=== PATIENT | male | born 1940 | race Caucasian/White ===

== ENCOUNTER 2020-12-25 06:34 | Outpatient (CLI) | payer MEDICARE | END 2020-12-25 06:35 | disposition critical access hospital (66) | LOC: EMS 06:34 | DX: R50.9 Fever, unspecified (principal); R04.2 Hemoptysis; Z86.16 Personal history of COVID-19; Z85.118 Personal history of other malignant neoplasm of bronchus and lung | CPT/HCPCS: A0425; A0429 ==

== ENCOUNTER 2020-12-25 07:04 | Inpatient (IN) | payer MEDICARE ==
[2020-12-25] MEDS ORDERED: ACETAMINOPHEN 325 MG TABLET PO STA (07:19)
[2020-12-25] MEDS ORDERED: AZITHROMYCIN INJ 500 MG in SODIUM CHLORIDE 0.9% 250 ML IV STA (07:29)
[2020-12-25] MEDS ORDERED: SODIUM CHLORIDE 0.9% IV STA (07:29)
[2020-12-25] MEDS ORDERED: cefTRIAXone 1 GM in SODIUM CHLORIDE 0.9% MINIBAG 100 ML IV STA (07:29)
--- NOTE | 2020-12-25 07:30 | ED Physician Documentation ---
PD HPI URI - Stated complaint Stated Complaint: FEVER - Chief complaint Chief Complaint: Resp - History obtained from History obtained from: Patient, EMS - History of Present Illness Timing - onset: Yesterday Timing duration: Days (2) Timing details: Gradual onset, Still present Associated symptoms: Fever, Chills, Productive cough, Hemoptysis, Dyspnea Contributing factors: Unimmunized, Other (chronic cough) Improves by: Rest Worsened by: Activity Similar symptoms before: Diagnosis (pneumonia) Recently seen: Admitted (in October to [facility]) - Additional information Additional information: 80-year-old male his dog sitting for his daughter has developed exertional dyspnea and cough and overnight he has developed a fever and chills. He was unable to get up out of bed this morning stumbling around and his called 911. He has been admitted into [facility] for a respiratory illness in October of this year. He is uncertain whether he had Covid or not. He is not immunized. Review of Systems Constitutional: reports: Fever, Chills, Myalgias, Fatigue, Sweats Eyes: denies: Decreased vision Ears: denies: Ear pain Nose: denies: Rhinorrhea / runny nose, Congestion Throat: denies: Sore throat Cardiac: denies: Chest pain / pressure, Palpitations, Pedal edema, Calf pain Respiratory: reports: Dyspnea, Cough, Hemoptysis GI: reports: Vomiting (after a coughing paroxysm today). denies: Abdominal Pain, Nausea, Constipation, Diarrhea : denies: Dysuria, Frequency Skin: denies: Rash Musculoskeletal: denies: Neck pain, Back pain, Extremity pain Neurologic: denies: Generalized weakness, Focal weakness, Numbness PD PAST MEDICAL HISTORY - Present Medications Home Medications: Ambulatory Orders Medication Instructions Recorded Confirmed Amlodipine Besylate [Norvasc] 10 mg PO DAILY 12/25/20 12/25/20 Divalproex Sodium [Depakote ER] 500 mg PO DAILY 12/25/20 12/25/20 Losartan [Cozaar] 50 mg PO DAILY 12/25/20 12/25/20 - Allergies Allergies/Adverse Reactions: Allergies Allergy/AdvReac Type Severity Reaction Status Date / Time morphine Allergy Hallucinati Verified 12/25/20 07:14 ons PD ED PE NORMAL - Vitals Vital signs reviewed: Yes (Febrile tachycardic and hypertensive) - General General: No acute distress, Well developed/nourished, Other (delay in execution of motor commands is present) - HEENT HEENT: Atraumatic, PERRL, EOMI - Neck Neck: Supple, no meningeal sign, No bony TTP - Cardiac Cardiac: No murmur, Other (Tachycardic to 100) - Respiratory Respiratory: No respiratory distress, Other (Rhonchi in the left base is reproducible) - Abdomen Abdomen: Soft, Non tender, Other (Well-healed midline scar) - Back Back: No CVA TTP, No spinal TTP - Derm Derm: Normal color, Warm and dry, No rash - Extremities Extremities: No deformity, No edema - Neuro Neuro: Alert and oriented X 3, research/program director 2-12 intact, No motor deficit, No sensory deficit, Normal speech Eye Opening: Spontaneous Motor: Obeys Commands Verbal: Oriented GCS Score: 15 - Psych Psych: Normal mood, Normal affect Results - Vitals Vitals: Vital Signs - 24 hr 12/25/20 12/25/20 12/25/20 07:14 07:48 08:08 Temperature 40.1 C H 38.4 C H Heart Rate 103 H 93 94 Respiratory 19 29 H 30 H Rate Blood Pressure 162/71 H 138/93 H 138/93 H O2 Saturation 96 95 94 12/25/20 08:30 Temperature Heart Rate 92 Respiratory 28 H Rate Blood Pressure 142/62 H O2 Saturation 93 Oxygen O2 Source Room air - Labs Labs: Laboratory Tests 12/25/20 12/25/20 12/25/20 07:37 07:38 07:50 WBC 8.2 RBC 5.06 Hgb 14.6 Hct 45.3 MCV 89.5 MCH 28.9 MCHC 32.2 RDW 14.3 Plt Count 164 MPV 10.8 Neut # (Auto) 7.3 H Lymph # (Auto) 0.4 L [place] # (Auto) 0.5 Eos # (Auto) 0.0 Baso # (Auto) 0.0 Absolute Nucleated RBC 0.00 Nucleated RBC % 0.0 Sodium Potassium Chloride Carbon Dioxide Anion Gap BUN Creatinine Estimated GFR (MDRD) Glucose Lactic Acid Calcium Total Bilirubin AST ALT Alkaline Phosphatase Total Protein Albumin Globulin Albumin/Globulin Ratio Urine Color YELLOW Urine Clarity CLEAR Urine pH 5.5 Ur Specific [place] 1.025 Urine Protein NEGATIVE Urine Glucose (UA) NEGATIVE Urine Ketones NEGATIVE Urine Occult Blood MODERATE H Urine Nitrite NEGATIVE Urine Bilirubin NEGATIVE Urine Urobilinogen 0.2 (NORMAL) Ur Leukocyte Esterase NEGATIVE Urine RBC 0-5 Urine WBC 0-3 Ur Squamous Epith Cells RARE Squamous Urine Bacteria None Seen Urine Culture Comments NOT INDICATED Nasal Adenovirus (PCR) NOT DETECTED Nasal B. parapertussis DNA (PCR) NOT DETECTED Nasal Coronavir 229E PCR NOT DETECTED Nasal Coronavir HKU1 PCR NOT DETECTED Nasal Coronavir NL63 PCR NOT DETECTED Nasal Coronavir OC43 PCR NOT DETECTED Nasal Enterovir/Rhinovir PCR NOT DETECTED Nasal Influenza B PCR NOT DETECTED Nasal Influenza A PCR NOT DETECTED Nasal Parainfluen 1 PCR NOT DETECTED Nasal Parainfluen 2 PCR NOT DETECTED Nasal Parainfluen 3 PCR NOT DETECTED Nasal Parainfluen 4 PCR NOT DETECTED Nasal RSV (PCR) NOT DETECTED Nasal B.pertussis DNA PCR NOT DETECTED Nasal C.pneumoniae (PCR) NOT DETECTED Gerry Human Metapneumo PCR NOT DETECTED Nasal M.pneumoniae (PCR) NOT DETECTED Nasal SARS-CoV-2 (PCR) NOT DETECTED 12/25/20 12/25/20 07:50 07:50 WBC RBC Hgb Hct MCV MCH MCHC RDW Plt Count MPV Neut # (Auto) Lymph # (Auto) [place] # (Auto) Eos # (Auto) Baso # (Auto) Absolute Nucleated RBC Nucleated RBC % Sodium 139 Potassium 3.7 Chloride 105 Carbon Dioxide 24 Anion Gap 10.0 BUN 28 H Creatinine 1.5 H Estimated GFR (MDRD) 45 L Glucose 106 H Lactic Acid 1.5 Calcium 9.2 Total Bilirubin 1.1 H AST 24 ALT 14 Alkaline Phosphatase 43 Total Protein 7.2 Albumin 3.7 Globulin 3.5 Albumin/Globulin Ratio 1.1 Urine Color Urine Clarity Urine pH Ur Specific [place] Urine Protein Urine Glucose (UA) Urine Ketones Urine Occult Blood Urine Nitrite Urine Bilirubin Urine Urobilinogen Ur Leukocyte Esterase Urine RBC Urine WBC Ur Squamous Epith Cells Urine Bacteria Urine Culture Comments Nasal Adenovirus (PCR) Nasal B. parapertussis DNA (PCR) Nasal Coronavir 229E PCR Nasal Coronavir HKU1 PCR Nasal Coronavir NL63 PCR Nasal Coronavir OC43 PCR Nasal Enterovir/Rhinovir PCR Nasal Influenza B PCR Nasal Influenza A PCR Nasal Parainfluen 1 PCR Nasal Parainfluen 2 PCR Nasal Parainfluen 3 PCR Nasal Parainfluen 4 PCR Nasal RSV (PCR) Nasal B.pertussis DNA PCR Nasal C.pneumoniae (PCR) Gerry Human Metapneumo PCR Nasal M.pneumoniae (PCR) Nasal SARS-CoV-2 (PCR) - Rads (name of study) chest Radiology: Prelim report reviewed (Impression: 1. Left hemithorax volume loss with extensive alveolar opacities and probable small L effusion. Chronicity is uncertain and changes may reflect chronic interstitial lung disease, neoplasm, or potentially acute infection. 2. 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. He has now developed fever and hemoptysis has rhonchi on exam corresponding infiltrate on chest x-ray. Today his COVID-19 is negative he presents to the emergency department febrile tachycardic and with a wide pulse pressure. He is started on sepsis protocol administered a azithromycin and Ro cephin intravenously as well as fluid resuscitation.He is administered Tylenol for fever and has improvement. Departure - Departure Disposition: [facility] DC/Xfer Clinical Impression: Pneumonia Qualifiers: Pneumonia type: due to unspecified organism Laterality: bilateral Lung location: lower lobe of lung Qualified Code(s): J18.9 - Pneumonia, unspecified organism Condition: Stable
[2020-12-25 08:09] LABS: BILIRUBIN,URINE NEGATIVE (NEGATIVE); GLUCOSE, URINE (UA) NEGATIVE (NEGATIVE); KETONES,URINE (UA) NEGATIVE (NEGATIVE); LEUKOCYTE ESTERASE, URINE NEGATIVE (NEGATIVE); NITRITE,URINE NEGATIVE (NEGATIVE); OCCULT BLOOD,URINE MODERATE (NEGATIVE); PH,URINE 5.5 PH (5.0-7.5); PROTEIN,URINE NEGATIVE (NEGATIVE); UROBILINOGEN,URINE 0.2 (NORMAL) E.U./dL (NORMAL)
[2020-12-25 08:11] LABS: CLARITY,URINE CLEAR (CLEAR)
[2020-12-25 08:12] LABS: BASOPHILS % (AUTO) 0.2 %; EOSINOPHILS % (AUTO) 0.1 %; HCT - HEMATOCRIT 45.3 % (42.0-52.0); HGB - HEMOGLOBIN 14.6 g/dL (14.0-18.0); LYMPHOCYTES # (AUTO) 0.4 10^3/uL (1.5-3.5); MEAN CORPUSCULAR HEMOGLOBIN 28.9 pg (27.0-31.0); MEAN CORPUSCULAR HGB CONC 32.2 g/dL (32.0-36.0); MEAN CORPUSCULAR VOLUME 89.5 fL (80.0-94.0); MEAN PLATELET VOLUME 10.8 fL (7.4-11.4); MONOCYTES # (AUTO) 0.5 10^3/uL (0.0-1.0); MONOCYTES % (AUTO) 5.6 %; NEUTROPHILS # (AUTO) 7.3 10^3/uL (1.5-6.6); NEUTROPHILS % (AUTO) 88.9 %; PLT - PLATELET COUNT 164 10^3/uL (130-450); RED BLOOD COUNT 5.06 10^6/uL (4.70-6.10); RED CELL DISTRIBUTION WIDTH 14.3 % (12.0-15.0); WHITE BLOOD COUNT 8.2 x10^3/uL (4.8-10.8)
[2020-12-25 08:15] LABS: BACTERIA,URINE None Seen /HPF (None Seen); RBC,URINE 0-5 /HPF (0-5); SQUAMOUS EPITHELIAL CELL,UR RARE Squamous (<= Few); WBC,URINE 0-3 /HPF (0-3)
--- NOTE | 2020-12-25 08:16 | XRAY Report ---
PROCEDURE: Chest 1 View X-Ray INDICATIONS: chest pain TECHNIQUE: One view of the chest was acquired. COMPARISON: None FINDINGS: Surgical changes and devices: None. Lungs and pleura: Fairly extensive patchy alveolar opacity throughout the mid to lower left lung with consolidative changes in the lingula and blunting of the costophrenic sulcus. There is left lateral pleural thickening which may be pleural fluid. There is overall left hemithorax volume loss. Small al veolar consolidation right lateral lower lung without significant effusion. No pneumothorax. Mediastinum: Mediastinal contours appear normal. Heart size is normal. Heavy aortic arch calcifica tion. Bones and chest wall: No suspicious bony lesions. Overlying soft tissues appear unremarkable. IMPRESSION: 1. Left hemithorax volume loss with extensive alveolar opacities and probable small left effusion. Ch ronicity is uncertain and changes may reflect chronic interstitial lung disease, neoplasm, or potenti ally acute infection. 2. Small right lateral alveolar opacity, potentially acute infection or aspiration. Reviewed by: Mariella Alejandre MD on 12/25/2020 8:15 AM PDT Approved by: Mariella Alejandre MD on 12/25/2020 8:15 AM PDT Station ID: [id number]
[2020-12-25 08:24] LABS: ALBUMIN 3.7 g/dL (3.2-5.5); ALBUMIN/GLOBULIN RATIO 1.1 (1.0-2.2); BILIRUBIN,TOTAL 1.1 mg/dL (0.2-1.0); CALCIUM 9.2 mg/dL (8.5-10.3); CREATININE 1.5 mg/dL (0.6-1.2); POTASSIUM 3.7 mmol/L (3.5-5.0); TOTAL PROTEIN 7.2 g/dL (6.7-8.2)
[2020-12-25 09:02] LABS: B. PARAPERTUSSIS- RESP PCR PAN NOT DETECTED; B. PERTUSSIS- RESP PCR PANEL NOT DETECTED; C. PNEUMONIAE- RESP PCR PANEL NOT DETECTED; CORONAVIRUS 229E-RESP PCR NOT DETECTED; CORONAVIRUS HKU1-RESP PCR NOT DETECTED; CORONAVIRUS NL63-RESP PCR NOT DETECTED; CORONAVIRUS OC43-RESP PCR NOT DETECTED; HUMAN METAPNEUMOVIRUS NOT DETECTED; INFLUENZA A- RESP PCR PANEL NOT DETECTED; INFLUENZA B - RESP PCR PANEL NOT DETECTED; M. PNEUMONIAE- RESP PCR PANEL NOT DETECTED; PARAINFLUENZA VIRUS 1 NOT DETECTED; PARAINFLUENZA VIRUS 2 NOT DETECTED; PARAINFLUENZA VIRUS 3 NOT DETECTED; PARAINFLUENZA VIRUS 4 NOT DETECTED; RHINOVIRUS/ENTEROVIRUS NOT DETECTED; RSV- RESP PCR PANEL NOT DETECTED; SARS-CoV-2 -RESP PCR PANEL NOT DETECTED
[2020-12-25] MEDS ORDERED: IOVERSOL 320 100 ML VIAL IVP ONE ×2 (09:49→13:08)
--- NOTE | 2020-12-25 11:57 | CT Report ---
PROCEDURE: CHEST W INDICATIONS: LLL infiltrate hx/o cancer L lobectomy CONTRAST: IV CONTRAST: Optiray 320 ml: 100 PO CONTRAST: *NO PO CONTRAST TECHNIQUE: After the administration of intravenous contrast, 5 mm thick sections acquired from the pulmonary api ray to the posterior costophrenic angles. 7 mm thick coronal MIP reformats were acquired. For radia tion dose reduction, the following was used: automated exposure control, adjustment of mA and/or kV according to patient size. COMPARISON: Chest x-ray 12/25/2020 FINDINGS: Image quality: Excellent. Lungs and pleura: Chronic interstitial changes are present. There are predominantly left-sided patchy and confluent pulmonary opacities, some appearing groundglass in appearance. Minimal left effusion i s present. Mediastinum: Heart size is normal. No pericardial effusion. Multiple mediastinal lymph nodes are pr esent, borderline enlarged by short axis size criteria. Thoracic aorta and central pulmonary arteries are normal in size. Esophagus is normal in caliber. No hiatal hernia. Bones and chest wall: No suspicious bony lesions. No vertebral body compression fractures. No axil chelle or supraclavicular adenopathy by size criteria. The thyroid is normal in size and there are no incidental findings.. Abdomen: Visualized upper abdominal solid organs appear normal. Upper abdominal bowel loops are nor mal in caliber. IMPRESSION: 1. Predominantly left hemithorax interstitial pulmonary opacities and minimal effusion as described a gloria. Overall appearance is suggestive of infection or inflammation. However, given history of previo us neoplasm, short interval imaging follow-up after appropriate therapy is recommended to document re solution and exclude presence of underlying mass of potential neoplastic etiology. 2. Numerous borderline enlarged mediastinal lymph nodes, possibly reactive given potential infectious /inflammatory nature of the lungs as above. Reviewed by: Tatum Barr MD on 12/25/2020 11:56 AM PDT Approved by: Tatum Barr MD on 12/25/2020 11:56 AM PDT Station ID: [id number]
[2020-12-25] MEDS ORDERED: ACETAMINOPHEN 325 MG TABLET PO PRN (12:14)
[2020-12-25] MEDS ORDERED: ONDANSETRON 4 MG/2 ML VIAL IVP PRN (12:14)
[2020-12-25] MEDS ORDERED: ONDANSETRON ODT 4 MG TABLET TL PRN (12:14)
[2020-12-25] MEDS ORDERED: SODIUM CHLORIDE FLUSH 0.9% 10 ML SYRINGE IVP PRN (12:14)
[2020-12-25] MEDS ORDERED: ALBUTEROL NEB 2.5 MG/3 ML INH PRN (12:18)
--- NOTE | 2020-12-25 13:19 | PHARMACY PROGRESS NOTE ---
- Best Possible Medication History Admit Date and Time: 12/25/20 1214 Processed by: Nursing Medication History completed: Yes Patient Interview: Completed (MED REC COMPLETED BY NURSING) As the person ultimately responsible for medication therapy, providers are able to order a medication from an existing home medication list in [facility] via the "Reconcile Routine" prior to Confirmation of that medication by direct support professional home health. Such practice is discouraged except when the physician, in their clinical judgment, deems that a medical need exists for a medication without regard to previous use.
[2020-12-25] MEDS: LACTATED RINGERS 1,000 ML IV SCH ×2 (13:42→23:51)
--- NOTE | 2020-12-25 14:44 | HISTORY & PHYSICAL EXAMINATION ---
Chief Complaint - Chief Complaint Chief Complaint: feve, chill History of Present Illness - Admitted From Admitted From:: medical floor - History Obtained From Records Reviewed: [facility] History obtained from: pt Exam Limitations: no - History of Present Illness HPI Comment/Other: this is a pleasant 80-year-old male with A past medical history significant of lung cancer, hypertension Who present to ER complain warm and chill in home. 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 He denies dyspnea, chest pain. He reported he was found to have lung cancer 3 years ago, then he had left loberectomy done after. He reported he declined to have chemotherapy although his oncology hoped him to do. CT of the chest review predominately left hemothorax interstitial pulmonary opacities and minimal effusion, overly appearance is suggestive of infection or inflammation, Given history of previous neoplasm, Follow-up after appropriate therapy is recommended to document resolution and excluded patient of underlying mass of potential neoplastic etiology. In ER, patient is febrile in the temperature 40.1 With tachycardia and tachypnea. Given above medical condition, medical team was consulted for admitted patient. Discussed the care goal with the patient, patient clearly stated he is DNR/DNI. History - Family & Social History Family History: Mother: , Father: Family History Comment/Other: Patient reported his father at age 92 from heart attack. His mother at age 87 from complication of diabetic. Social History Notes: Patient reported he quit cigarette smoking at age 26, he denies alcohol or drug problem. He is living to [facility], he had 5 children - POLST POLST Status: DNR Meds/Allgy - Home Medications Home Medications: Ambulatory Orders Medication Instructions Recorded Confirmed Amlodipine Besylate [Norvasc] 10 mg PO DAILY 12/25/20 12/25/20 Divalproex Sodium [Depakote ER] 500 mg PO DAILY 12/25/20 12/25/20 Losartan [Cozaar] 50 mg PO DAILY 12/25/20 12/25/20 - Allergies Allergies/Adverse Reactions: Allergies Allergy/AdvReac Type Severity Reaction Status Date / Time morphine Allergy Hallucinati Verified 12/25/20 07:14 ons Review of Systems - Constitutional Constitutional: reports: Fever, Chills. denies: Diaphoresis, Night sweats - Eyes Eyes: denies: Pain, Field loss, Vision loss - Ears, Nose & Throat Ears, Nose & Throat: denies: Ear pain, Nosebleeds, Bleeding gums - Cardiovascular Cariovascular: denies: Chest pain, Syncope, Exertional dyspnea - Respiratory Respiratory: reports: Cough, Sputum production, SOB with exertion. denies: Wheezing, Hemoptysis - Gastrointestinal Gastrointestinal: denies: Abdominal pain, Diarrhea, Nausea, Vomiting - Genitourinary Genitourinary: denies: Dysuria - Musculoskeletal Musculoskeletal: denies: Muscle pain, Limited range of motion - Integumentary Integumentary: denies: Rash - Neurological Neurological: denies: General weakness, Focal weakness, Dizziness, Abnormal gait, Seizures, Slurred speech - Psychiatric Psychiatric: denies: Depression - Endocrine Endocrine: denies: Polyuria - Hematologic/Lymphatic Hematologic/Lymphatic: denies: Lymphadenopathy Prior Level of Functionality: Patient is independent at home Exam - Vital Signs Vital Signs: Vital Signs x48h Temp Pulse Pulse Resp BP BP Pulse Ox 12/25/20 12:53 73 18 145/50 H 96 12/25/20 12:30 72 24 147/85 H 93 12/25/20 12:00 37.0 C 75 23 135/58 H 96 12/25/20 11:00 74 22 142/57 H 93 12/25/20 10:30 78 24 146/72 H 95 12/25/20 10:00 80 18 138/61 H 94 12/25/20 09:30 37.7 C 81 27 H 149/68 H 93 12/25/20 09:00 38.1 C H 82 29 H 139/80 H 94 12/25/20 08:30 92 28 H 142/62 H 93 12/25/20 08:08 38.4 C H 94 30 H 138/93 H 94 12/25/20 07:48 93 29 H 138/93 H 95 12/25/20 07:14 40.1 C H 103 H 19 162/71 H 96 - Physical Exam General Appearance: positive: No acute distress, Alert. negative: Lethargic Eyes Bilateral: positive: Normal inspection, PERRL, No lid inflammation ENT: positive: ENT inspection nml, No signs of dehydration. negative: Purulent nasal drainage Neck: positive: Nml inspection, Trachea midline. negative: Thyromegaly, Tracheal deviation Respiratory: positive: Chest non-tender, No respiratory distress, Rales Cardiovascular: positive: Regular rate & rhythm, No murmur. negative: Tachycardia, Bradycardia, Systolic murmur, Diastolic murmur Peripheral Pulses: positive: 2+ Abdomen: positive: Non-tender, Nml bowel sounds, No distention. negative: Tenderness Back: positive: Nml inspection Skin: positive: Color nml, Warm, Dry. negative: Cyanosis Extremities: positive: Non-tender, Full ROM, Nml appearance. negative: Calf tenderness Neurologic/Psychiatric: positive: Oriented x3, Motor nml, Sensation nml, Mood/affect nml. negative: Weakness, Sensory loss, Facial droop, Slurred/abnml speech, Depressed mood/affect Sepsis Event Note (H) - Evaluation Current Stage of Sepsis: Sepsis Possible source of Sepsis: positive: Pulmonary - Sepsis Criteria Sepsis Criteria: Recorded Temperature greater than 38.3C or Less than 36C, Recorded Heart Rate greater than 90 bpm, Recorded Respiratory Rate greater than 20 Conclusion/Plan - Problem List (1) Sepsis Conclusion/Plan: Patient had high fever, patient present tachypnea, tachycardia. Chest x-ray and CT is suggestive to have pneumonia, Mainly located at left lung. ER already started treated patient with azithromycin, Rocephin. We will continue to these antibiotics, Blood culture is draw and pending. (2) Pneumonia Conclusion/Plan: Chest x-ray and CT suggestive to patient has pneumonia. Patient does not show acute respiratory distress. However patient had fever, tachypnea, tachycardia in the admission. We will continue treated with antibiotics, blood cultures is pending. Qualifiers: Pneumonia type: due to unspecified organism Laterality: bilateral Lung location: lower lobe of lung Qualified Code(s): J18.9 - Pneumonia, unspecified organism (3) Hx of cancer of lung Conclusion/Plan: Patient history of left loberectomy and left lung cancer Blood no chemotherapy after surgery. CT of the chest show numerous borderline enlarged mediastinal lymph nodes Which could possible reactive culture pneumonia. However patient also had hx of lung cancer in the left side of the lung. Patient may have repeat CT after pneumonia is appropriate treated. (4) HTN (hypertension) Conclusion/Plan: Patient's hypertension is stable now, we will resume patient blood pressure medicine. - Lab Results Fish Bones: 12/25/20 07:50 12/25/20 07:50 Core Measures - Anticipated LOS I expect patient to be DC'd or transferred within 96 hours.: Yes - DVT/VTE - Prophylaxis VTE/DVT Device ordered at admit?: Yes VTE/DVT Prophylaxis med ordered at admit?: Yes
[2020-12-25 15:24] LABS: VALPROIC ACID (DEPAKOTE) 23.8 ug/mL
[2020-12-25] MEDS: SACCHAROMYCES BOULARDII 250 MG CAPSULE PO SCH (17:08)
[2020-12-25] MEDS: SODIUM CHLORIDE FLUSH 0.9% 10 ML SYRINGE IVP SCH ×2 (17:09→23:51)
[2020-12-25] MEDS: DIVALPROEX ER 250 MG TABLET PO SCH (17:09)
[2020-12-25] MEDS: guaiFENesin 600 MG TABLET PO SCH (21:32)
[2020-12-26 05:25] LABS: BASOPHILS % (AUTO) 0.3 %; EOSINOPHILS % (AUTO) 0.3 %; HCT - HEMATOCRIT 36.6 % (42.0-52.0); HGB - HEMOGLOBIN 11.8 g/dL (14.0-18.0); LYMPHOCYTES # (AUTO) 0.9 10^3/uL (1.5-3.5); LYMPHOCYTES % (AUTO) 8.2 %; MEAN CORPUSCULAR HGB CONC 32.2 g/dL (32.0-36.0); MEAN CORPUSCULAR VOLUME 89.9 fL (80.0-94.0); MEAN PLATELET VOLUME 10.7 fL (7.4-11.4); MONOCYTES # (AUTO) 1.1 10^3/uL (0.0-1.0); MONOCYTES % (AUTO) 9.3 %; NEUTROPHILS # (AUTO) 9.2 10^3/uL (1.5-6.6); NEUTROPHILS % (AUTO) 81.4 %; PLT - PLATELET COUNT 131 10^3/uL (130-450); RED BLOOD COUNT 4.07 10^6/uL (4.70-6.10); RED CELL DISTRIBUTION WIDTH 14.6 % (12.0-15.0); WHITE BLOOD COUNT 11.3 x10^3/uL (4.8-10.8)
[2020-12-26 05:55] LABS: CALCIUM 8.6 mg/dL (8.5-10.3); CREATININE 1.3 mg/dL (0.6-1.2); CRP - C-REACTIVE PROTEIN 19.5 mg/dL (0-1.0); POTASSIUM 3.7 mmol/L (3.5-5.0)
[2020-12-26] MEDS: guaiFENesin 600 MG TABLET PO SCH ×2 (08:15→21:57)
[2020-12-26] MEDS: SACCHAROMYCES BOULARDII 250 MG CAPSULE PO SCH ×2 (08:15→17:11)
[2020-12-26] MEDS: cefTRIAXone 2 GM in SODIUM CHLORIDE 0.9% MINIBAG 100 ML IV SCH (08:15)
[2020-12-26] MEDS: DIVALPROEX ER 250 MG TABLET PO SCH (08:15)
[2020-12-26] MEDS: ENOXAPARIN 40 MG/0.4 ML SYRINGE SUBQ SCH (08:16)
[2020-12-26] MEDS: SODIUM CHLORIDE FLUSH 0.9% 10 ML SYRINGE IVP SCH ×3 (08:16→23:30)
[2020-12-26] MEDS: AZITHROMYCIN INJ 500 MG in SODIUM CHLORIDE 0.9% 250 ML IV SCH (08:52)
--- NOTE | 2020-12-26 08:59 | PROVIDER PROGRESS NOTE ---
Subjective - Prog Note Date Prog Note Date: 12/26/20 - Subjective Subjective: He reports feeling much better today compared to yesterday. Still has a cough which she states is unchanged compared to his baseline. He has not felt short of breath when ambulating. Denies any chest pain. Current Medications - Current Medications Current Medications: Active Medications Acetaminophen (Acetaminophen 325 Mg Tablet) 650 mg PO Q4HR PRN PRN Reason: Pain 1 to 4 Albuterol (Albuterol Neb 2.5 Mg/3 Ml) 2.5 mg INH Q4HR PRN PRN Reason: Wheezing Divalproex Sodium (Divalproex Er 250 Mg Tablet) 500 mg PO DAILY [facility] Last Admin: 12/26/20 08:15 Dose: 500 mg Documented by: Enoxaparin Sodium (Enoxaparin 40 Mg/0.4 Ml Syringe) 40 mg SUBQ DAILY [facility] Last Admin: 12/26/20 08:16 Dose: Not Given Documented by: Guaifenesin (Guaifenesin 600 Mg Tablet) 600 mg PO BID [facility] Last Admin: 12/26/20 08:15 Dose: 600 mg Documented by: Azithromycin 500 mg/ Sodium (Chloride) 250 mls @ 250 mls/hr IV DAILY [facility] Stop: 12/27/20 09:59 Last Admin: 12/26/20 08:52 Dose: 250 mls/hr Documented by: Ceftriaxone Sodium 2 gm/ (Sodium Chloride) 100 mls @ 200 mls/hr IV DAILY [facility] Stop: 12/29/20 09:29 Last Admin: 12/26/20 08:15 Dose: 200 mls/hr Documented by: Ondansetron HCl (Ondansetron Odt 4 Mg Tablet) 4 mg TL Q6HR PRN PRN Reason: Nausea / Vomiting Ondansetron HCl (Ondansetron 4 Mg/2 Ml Vial) 4 mg IVP Q6HR PRN PRN Reason: Nausea / Vomiting Saccharomyces Boulardii (Saccharomyces Boulardii 250 Mg Capsule) 250 mg PO BIDWM [facility] Last Admin: 12/26/20 08:15 Dose: 250 mg Documented by: Sodium Chloride (Sodium Chloride Flush 0.9% 10 Ml Syringe) 10 ml IVP PRN PRN PRN Reason: NEEDED PER PROVIDER ORDERS Last Admin: 12/25/20 13:43 Dose: 10 ml Documented by: Sodium Chloride (Sodium Chloride Flush 0.9% 10 Ml Syringe) 10 ml IVP 0100,0900,1700 [facility] Last Admin: 12/26/20 08:16 Dose: 10 ml Documented by: Amlodipine Besylate [Norvasc] 10 mg PO DAILY 12/25/20 Divalproex Sodium [Depakote ER] 500 mg PO DAILY 12/25/20 Losartan [Cozaar] 50 mg PO DAILY 12/25/20 Objective - Vital Signs/Intake & Output Reviewed Vital Signs: Yes Vital Signs: Vital Signs x48h Temp Pulse Pulse Resp BP Pulse Ox 12/26/20 08:00 36.2 C L 68 18 130/54 L 96 12/26/20 05:05 36.7 C 80 20 94 12/26/20 02:52 36.7 C 80 20 140/52 H 94 Intake & Output: Intake & Output 12/23/20 12/24/20 12/25/20 12/26/20 23:59 23:59 23:59 23:59 Intake Total 6669 240 Balance 6669 240 - Objective General Appearance: positive: No acute distress, Alert Eyes Bilateral: positive: Normal inspection, Conjunctivae nml ENT: positive: ENT inspection nml Neck: positive: Nml inspection Respiratory: positive: No respiratory distress, Rhonchi (Faint rhonchi in the left lung field.), Other (Diminished breath sounds in left base.). negative: Wheezes Cardiovascular: positive: Regular rate & rhythm, No murmur. negative: Tachycardia Abdomen: positive: Non-tender, No distention. negative: Tenderness Skin: positive: Warm, Dry Extremities: positive: Pedal edema (Trace pitting edema in bilateral lower extremities) Neurologic/Psychiatric: positive: Motor nml. negative: Disoriented to person, Disoriented to place - Lab Results Fish Bones: 12/26/20 04:39 12/26/20 04:39 Other Labs: Lab Results x24hrs 12/26/20 12/26/20 12/25/20 Range/Units 04:39 04:39 15:00 WBC 11.3 H (4.8-10.8) x10^3/uL RBC 4.07 L (4.70-6.10) 10^6/uL Hgb 11.8 L (14.0-18.0) g/dL Hct 36.6 L (42.0-52.0) % MCV 89.9 (80.0-94.0) fL MCH 29.0 (27.0-31.0) pg MCHC 32.2 (32.0-36.0) g/dL RDW 14.6 (12.0-15.0) % Plt Count 131 (130-450) 10^3/uL MPV 10.7 (7.4-11.4) fL Neut # (Auto) 9.2 H (1.5-6.6) 10^3/uL Lymph # (Auto) 0.9 L (1.5-3.5) 10^3/uL [place] # (Auto) 1.1 H (0.0-1.0) 10^3/uL Eos # (Auto) 0.0 (0.0-0.7) 10^3/uL Baso # (Auto) 0.0 (0.0-0.1) 10^3/uL Absolute Nucleated RBC 0.00 x10^3/uL Nucleated RBC % 0.0 /100WBC Sodium 137 (135-145) mmol/L Potassium 3.7 (3.5-5.0) mmol/L Chloride 103 (101-111) mmol/L Carbon Dioxide 23 (21-32) mmol/L Anion Gap 11.0 (6-13) BUN 23 H (6-20) mg/dL Creatinine 1.3 H (0.6-1.2) mg/dL Estimated GFR (MDRD) 53 L (>89) Glucose 102 H (70-100) mg/dL Calcium 8.6 (8.5-10.3) mg/dL C-Reactive Protein 19.5 H 7.9 H (0-1.0) mg/dL Nasal Adenovirus (PCR) Nasal B. parapertussis DNA (PCR) Nasal Coronavir 229E PCR Nasal Coronavir HKU1 PCR Nasal Coronavir NL63 PCR Nasal Coronavir OC43 PCR Nasal Enterovir/Rhinovir PCR Nasal Influenza B PCR Nasal Influenza A PCR Nasal Parainfluen 1 PCR Nasal Parainfluen 2 PCR Nasal Parainfluen 3 PCR Nasal Parainfluen 4 PCR Nasal RSV (PCR) Nasal B.pertussis DNA PCR Nasal C.pneumoniae (PCR) Gerry Human Metapneumo PCR Nasal M.pneumoniae (PCR) Nasal SARS-CoV-2 (PCR) Last Dose Date Last Dose Time Valproic Acid ug/mL 12/25/20 12/25/20 Range/Units 15:00 07:38 WBC (4.8-10.8) x10^3/uL RBC (4.70-6.10) 10^6/uL Hgb (14.0-18.0) g/dL Hct (42.0-52.0) % MCV (80.0-94.0) fL MCH (27.0-31.0) pg MCHC (32.0-36.0) g/dL RDW (12.0-15.0) % Plt Count (130-450) 10^3/uL MPV (7.4-11.4) fL Neut # (Auto) (1.5-6.6) 10^3/uL Lymph # (Auto) (1.5-3.5) 10^3/uL [place] # (Auto) (0.0-1.0) 10^3/uL Eos # (Auto) (0.0-0.7) 10^3/uL Baso # (Auto) (0.0-0.1) 10^3/uL Absolute Nucleated RBC x10^3/uL Nucleated RBC % /100WBC Sodium (135-145) mmol/L Potassium (3.5-5.0) mmol/L Chloride (101-111) mmol/L Carbon Dioxide (21-32) mmol/L Anion Gap (6-13) BUN (6-20) mg/dL Creatinine (0.6-1.2) mg/dL Estimated GFR (MDRD) (>89) Glucose (70-100) mg/dL Calcium (8.5-10.3) mg/dL C-Reactive Protein (0-1.0) mg/dL Nasal Adenovirus (PCR) NOT DETECTED Nasal B. parapertussis DNA (PCR) NOT DETECTED Nasal Coronavir 229E PCR NOT DETECTED Nasal Coronavir HKU1 PCR NOT DETECTED Nasal Coronavir NL63 PCR NOT DETECTED Nasal Coronavir OC43 PCR NOT DETECTED Nasal Enterovir/Rhinovir PCR NOT DETECTED Nasal Influenza B PCR NOT DETECTED Nasal Influenza A PCR NOT DETECTED Nasal Parainfluen 1 PCR NOT DETECTED Nasal Parainfluen 2 PCR NOT DETECTED Nasal Parainfluen 3 PCR NOT DETECTED Nasal Parainfluen 4 PCR NOT DETECTED Nasal RSV (PCR) NOT DETECTED Nasal B.pertussis DNA PCR NOT DETECTED Nasal C.pneumoniae (PCR) NOT DETECTED Gerry Human Metapneumo PCR NOT DETECTED Nasal M.pneumoniae (PCR) NOT DETECTED Nasal SARS-CoV-2 (PCR) NOT DETECTED Last Dose Date Not Reportable Last Dose Time Not Reportable Valproic Acid 23.8 ug/mL ABX Reporting Has patient been on IV antibiotics over the past 48 hours?: Yes Sepsis Event Note (H) - Evaluation Current Stage of Sepsis: Resolved Possible source of Sepsis: positive: Pulmonary - Sepsis Criteria Sepsis Criteria: Recorded Temperature greater than 38.3C or Less than 36C, Recorded Heart Rate greater than 90 bpm, Recorded Respiratory Rate greater than 20 Assessment/Plan - Problem List (1) Sepsis Impression: His sepsis has now resolved. Presented with a fever and tachycardia. This is secondary to the community-acquired pneumonia. He has been hemodynamically stable and his lactic acid was within normal limits. We will continue day 2 of IV antibiotics. Blood cultures are pending. (2) Community acquired pneumonia Impression: This is the cause of his sepsis. Clinically he has shown much improvement over the past 24 hours. He remains on room air and no longer feels dyspneic. His white count is slightly increased today as well as his CRP. We will keep him on ceftriaxone and azithromycin for community-acquired pneumonia with today being day 2. If he remains afebrile then we will look to discharge him tomorrow morning to oral antibiotics to complete 7 days of therapy. Continue to monitor respiratory status. Qualifiers: Laterality: left (3) HTN (hypertension) Impression: His blood pressure has been elevated in the 130s to 140 systolic. We will resume his home losartan. We will hold off on the amlodipine unless his blood pressure continues to increase further. (4) Hx of cancer of lung Impression: He has a history of lung cancer she is here with a left lower lobe lobectomy. He did not receive chemotherapy. CT does show mediastinal lymphadenopathy which could be reactive given the infection. Nonetheless, he will need repeat imaging on an outpatient basis after we treat his pneumonia.
[2020-12-27 08:11] LABS: BASOPHILS % (AUTO) 0.3 %; EOSINOPHILS # (AUTO) 0.1 10^3/uL (0.0-0.7); EOSINOPHILS % (AUTO) 1.4 %; HCT - HEMATOCRIT 37.5 % (42.0-52.0); HGB - HEMOGLOBIN 12.3 g/dL (14.0-18.0); LYMPHOCYTES # (AUTO) 0.8 10^3/uL (1.5-3.5); LYMPHOCYTES % (AUTO) 9.7 %; MEAN CORPUSCULAR HEMOGLOBIN 29.4 pg (27.0-31.0); MEAN CORPUSCULAR HGB CONC 32.8 g/dL (32.0-36.0); MEAN CORPUSCULAR VOLUME 89.7 fL (80.0-94.0); MEAN PLATELET VOLUME 10.8 fL (7.4-11.4); MONOCYTES # (AUTO) 0.7 10^3/uL (0.0-1.0); MONOCYTES % (AUTO) 9.2 %; NEUTROPHILS # (AUTO) 6.3 10^3/uL (1.5-6.6); NEUTROPHILS % (AUTO) 78.9 %; PLT - PLATELET COUNT 118 10^3/uL (130-450); RED BLOOD COUNT 4.18 10^6/uL (4.70-6.10); RED CELL DISTRIBUTION WIDTH 14.3 % (12.0-15.0); WHITE BLOOD COUNT 7.9 x10^3/uL (4.8-10.8)
[2020-12-27] MEDS: guaiFENesin 600 MG TABLET PO SCH (08:28)
[2020-12-27] MEDS: SACCHAROMYCES BOULARDII 250 MG CAPSULE PO SCH (08:29)
[2020-12-27] MEDS: DIVALPROEX ER 250 MG TABLET PO SCH (08:29)
[2020-12-27] MEDS: cefTRIAXone 2 GM in SODIUM CHLORIDE 0.9% MINIBAG 100 ML IV SCH (08:30)
[2020-12-27] MEDS: ENOXAPARIN 40 MG/0.4 ML SYRINGE SUBQ SCH (08:30)
[2020-12-27] MEDS: SODIUM CHLORIDE FLUSH 0.9% 10 ML SYRINGE IVP SCH (08:30)
[2020-12-27 08:51] LABS: CALCIUM 8.8 mg/dL (8.5-10.3); CREATININE 1.2 mg/dL (0.6-1.2); CRP - C-REACTIVE PROTEIN 23.2 mg/dL (0-1.0); POTASSIUM 3.5 mmol/L (3.5-5.0)
[2020-12-27] MEDS ORDERED: LOSARTAN 50 MG TABLET PO SCH (09:00)
[2020-12-27] MEDS: AZITHROMYCIN INJ 500 MG in SODIUM CHLORIDE 0.9% 250 ML IV SCH (09:35)
[2020-12-27 10:09] VITALS: BP 140/61
--- NOTE | 2020-12-27 10:34 | Discharge Plan ---
Discharge Plan Problem Reviewed?: Yes Disposition: Home, Self Care Condition: Stable Prescriptions: Amoxicillin 1,000 mg PO TID 5 Days #30 cap Diet: Regular Activity Restrictions: Activity as Tolerated Instruction Topics: Amoxicillin capsules or tablets, Vaccination Pneumococcal, Pneumonia Dc Health Concerns: You were admitted to the hospital because of pneumonia. You were treated with IV antibiotics with improvement in your symptoms. Fortunately you never required oxygen. Your white count is now within normal limits and you have been fever free for over 24 hours. There has been no evidence of bacteria growing in your blood. Plan of Treatment: Please take the antibiotic amoxicillin 3 times a day as prescribed. This will be for another 5 days. It is important to finish the 5 days even if you feel that you are improving and no longer need antibiotics. You can start taking this on December 28. When you follow-up with your primary care physician, you should have a CT scan at some point likely 1 to [address] just to ensure that there is no recurrence of your lung cancer. Care Goals: The goal is to treat the underlying pneumonia. Assessment: The patient and family expressed understanding of the treatment plan. Additional Instructions or Follow Up instructions: Please follow-up with your primary care provider in 1 week. You should discuss with them regarding the pneumonia vaccine. Please return to the emergency department if you develop any fevers, chills, difficulty breathing. No Smoking: If you smoke, Please STOP! Call for help. Follow-up with: Urbano Segovia MD [Primary Care Provider] -
--- NOTE | 2020-12-27 10:43 | DISCHARGE SUMMARY ---
Discharge Summary Admit Date: 12/25/20 Discharge Date: 12/27/20 Discharging Provider: Sharad Mijares Primary Care Provider: Urbano Segovia Code Status: Do Not Attempt Resuscitation Condition at Discharge: Stable Discharge Disposition: 01 Home, Self Care - DIAGNOSES Admission Diagnoses: Sepsis Pneumonia History of cancer of lung Hypertension Discharge Diagnoses with Status of Each Condition: Sepsis - resolved. Community-acquired pneumonia - improved. Hypertension - stable. History of cancer of lung - stable. - HPI History of Present Illness: H&P per ANTHONY Mendoza: This is a pleasant 80-year-old male with A past medical history significant of lung cancer, hypertension Who present to ER complain warm and chill in home. 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 He denies dyspnea, chest pain. He reported he was found to have lung cancer 3 years ago, then he had left loberectomy done after. He reported he declined to have chemotherapy although his oncology hoped him to do. CT of the chest review predominately left hemothorax interstitial pulmonary opacities and minimal effusion, overly appearance is suggestive of infection or inflammation, Given history of previous neoplasm, Follow-up after appropriate therapy is recommended to document resolution and excluded patient of underlying mass of potential neoplastic etiology. In ER, patient is febrile in the temperature 40.1 With tachycardia and tachypnea. Given above medical condition, medical team was consulted for admitted patient. Discussed the care goal with the patient, patient clearly stated he is DNR/DNI. - HOSPITAL COURSE Hospital Course: He was admitted to the floor for sepsis secondary to community-acquired pneumonia of the left lung. He was started on ceftriaxone and azithromycin IV. A CT scan of the lung was concerning for infection and there was evidence of reactive mediastinal lymph nodes. He was never hypoxic and never required supplemental oxygen. The following day he felt much improved but he still did have a low-grade fever of 38 C. His white count had also slightly increased and his CRP was also increasing. We kept him on the ceftriaxone and azithromycin given he was clinically improving. The following day his white count returned to normal although his CRP did still increase slightly. He felt much improved and wanted to go home which we felt was reasonable given he had been afebrile for about 24 hours now and his white count has normalized. He also had no dyspnea and was ambulating without difficulty. He was also able to take p.o. He ultimately received 1.5 g of azithromycin and 3 doses of IV ceftriaxone. I did discharge him on amoxicillin 1 g 3 times daily to finish 7 days of therapy for the community-acquired pneumonia. I did ask him to follow-up with his primary care provider in 1 week. I also asked him to return to the emergency department if he were to develop any fevers, chills or difficulty breathing. I also spoke with the patient's to inform her of the discharge plan. - ALLERGIES Allergies/Adverse Reactions: Allergies Allergy/AdvReac Type Severity Reaction Status Date / Time morphine Allergy Hallucinati Verified 12/25/20 07:14 ons - MEDICATIONS Home Medications: Ambulatory Orders Medication Instructions Recorded Confirmed Amlodipine Besylate [Norvasc] 10 mg PO DAILY 12/25/20 12/25/20 Divalproex Sodium [Depakote ER] 500 mg PO DAILY 12/25/20 12/25/20 Losartan [Cozaar] 50 mg PO DAILY 12/25/20 12/25/20 Amoxicillin 1,000 mg PO TID 5 Days #30 cap 12/27/20 - PHYSICAL EXAM AT DISCHARGE General Appearance: positive: No acute distress, Alert Eyes Bilateral: positive: Normal inspection, Conjunctivae nml ENT: positive: ENT inspection nml Neck: positive: Nml inspection Respiratory: positive: No respiratory distress, Other (Diminished left base.). negative: Wheezes, Rales Cardiovascular: positive: Regular rate & rhythm. negative: Tachycardia Abdomen: positive: Non-tender, No distention. negative: Tenderness Skin: positive: Warm, Dry Extremities: positive: Pedal edema (Trace edema in bilateral lower extremities.) Neurologic/Psychiatric: positive: Motor nml. negative: Disoriented to person, Disoriented to place - LABS Result Diagrams: 12/27/20 07:23 12/27/20 07:23 - SEPSIS Current Stage of Sepsis: Resolved Possible source of Sepsis: Pulmonary Sepsis Criteria: Recorded Temperature greater than 38.3C or Less than 36C, Recorded Heart Rate greater than 90 bpm, Recorded Respiratory Rate greater than 20 - FOLLOW UP Follow Up: He was asked to follow-up with his primary care provider in 1 week. He will need a repeat CT scan to ensure resolution of the infiltrates and to ensure there is no recurrence of his lung malignancy. - TIME SPENT Time Spent in Discharge (Minutes): 34
== END 2020-12-27 13:15 | disposition home or self-care (01) | DRG 871 ==
LOC: ED 07:04 → MS3 12:14
PROVIDERS: ADMIT Internal Medicine; ATTEND Internal Medicine
DX: A41.9 Sepsis, unspecified organism (principal); J18.9 Pneumonia, unspecified organism; Z20.822 Contact with and (suspected) exposure to COVID-19; J94.2 Hemothorax; I10 Essential (primary) hypertension; Z66 Do not resuscitate; Z90.2 Acquired absence of lung [part of]; Z79.899 Other long term (current) drug therapy; Z85.118 Personal history of other malignant neoplasm of bronchus and lung; Z86.16 Personal history of COVID-19; Z87.891 Personal history of nicotine dependence
CPT/HCPCS: 36415; 71045; 71260; 80048; 80053; 80164; 81001; 83605; 85025; 86140; 87040; 87631; 96365; 96366; 96368; 99284; 99285; A9270; J7120; Q9967; 0202U; 87086